=== PATIENT | female | born 1970 | race Caucasian/White ===

== ENCOUNTER 2024-04-27 22:41 | Emergency (ER) | payer MEDICARE, SELFPAY ==
[2024-04-27 22:42] VITALS: BP 111/75; PULSE 82; RESP 18; TEMP 36.5; O2SAT 100; BMI 27.4
--- NOTE | 2024-04-27 22:48 | ED_ITS ---
HPI - Abdominal Pain 2 General: Chief Complaint: Abdominal Pain Stated Complaint: n/v Time Seen by Provider: 04/27/24 22:43 History of Present Illness: 54-year-old female who presents emergenc y room with 3 days of nausea vomiting and diarrhea. Said she had diarrhea and abdominal pain with nausea for the last 3 days but she does started vomiting today. She also developed some lower abdominal pain today. She says she just moved here. No known fevers. She reports she had long COVID . She says that every day she developed some nausea and epigastric abdominal pain until she sneezes. Related Data Previous Rx's Medication Instructions Recorded hydrocodone 5 mg-acetaminophen 325 1 tab PO Q8H PRN pain #14 tabs 04/28/24 mg tablet ondansetron 8 mg disintegrating 8 mg PO Q6H #14 tabs 04/28/24 tablet Allergies Allergy/AdvReac Type Severity Reaction Status Date / Time hydromorphone [From Dilaudid] Allergy ALGY-Anaphy Verified 04/28/24 00:[address] contrast Allergy Unknown Uncoded 04/27/24 22:49 Review of Systems 2 Narrative: Constitutional symptoms: Negative except as documented in HPI. Skin symptoms: Negative except as documented in HPI. Eye symptoms: Negative except as documented in HPI. ENMT symptoms: Negative except as documented in HPI. Respiratory symptoms: Negative except as documented in HPI. Cardiovascular symptoms: Negative except as documented in HPI. Gastrointestinal symptoms: Negative except as documented in HPI. Genitourinary symptoms: Negative except as documented in HPI. Musculoskeletal symptoms: Negative except as documented in HPI. Neurologic symptoms: Negative except as documented in HPI. Psychiatric symptoms: Negative except as documented in HPI. Endocrine symptoms: Negative except as documented in HPI. Physical Exam 2 Narrative: EXAM NARRATIVE: General: Alert, no acute distress. Skin: Warm, dry. Head: Normocephalic, atraumatic. Neck: Supple, trachea midline. Eye: Extraocular movements are intact. Ears, nose, mouth and throat: mucosa moist. Cardiovascular: Regular, Normal peripheral perfusion. Respiratory: Lungs are clear to auscultation, respirations are non-labored, breath sounds are equal, Symmetrical chest wall expansion. Gastrointestinal: Soft, no focal abdominal tenderness, Non distended Musculoskeletal: Normal ROM, no deformity. Neurological: Alert and oriented, No focal neurological deficit observed. Psychiatric: Cooperative, appropriate mood & affect. Course 2 Vital Signs: Vital signs: Vital Signs Temperature 97.7 F 04/27/24 22:42 Pulse Rate 81 04/28/24 00:52 Respiratory Rate 16 04/28/24 00:52 Blood Pressure 133/88 04/28/24 00:52 Pulse Oximetry 92 04/28/24 00:52 Oxygen Delivery Me thod Room Air 04/27/24 22:42 MDM - Abdominal Pain Medical Decision Making Medical decision making: Differential diagnosis for this patient with nausea and vomiting including but not limited to and based on the above HPI, review of systems and physical exam: Urinary tract infection. Appendicitis. Cholecystis. colitis. small bowel obstruction. crohn's flare. pancreatitis. gastritis. peptic ulcer. cyclic vomiting. Viral illness. Influenza. COVID. Orders placed to evaluate differential diagnosis based on the above differential, HPI and physical exam Lab Review: Laboratory results were reviewed and interpreted by myself the emergency room physician. Mild leukocytosis. No anemia. No renal failure. Urinalysis is negative for infection. She does have a mild elevation in her lipase at 446. However she has no signs of pancreatitis. I think this is secondary to vomiting rather than the cause of her vomiting. No epigastric tenderness. No evidence of pancreatitis on CT scan. CT of the abdomen pelvis without contrast: I would have preferred to do this with contrast but patient says she is extremely allergic and she had a family member that . She declines pretreatment. CT shows nothing acute. Some mild sludge in the gallbladder. She is not tender in her right upper quadrant. This was reviewed and interpreted by myself the emergency room physician. I also reviewed the radiology report. I reviewed the patient's medical record. Reexamination: Patient had some redness after receiving Dilaudid. Said she felt tight in her chest. Was medicated and this is improved. No increased work of breathing. Pain is improved on discharge. I discussed findings with her and herself. She has likely gastroenteritis as she has had nausea vomiting nonfocal abdominal pain and diarrhea. Assessment and plan: Gastroenteritis Vomiting ? IV Zofran, IV Dilaudid in the emergency room. Patient symptoms have improved significantly - Discharged home - Discussed plan with patient. Answered any questions. - Evaluation and treatment of this problem were appropriate in the emergency setting. Lab Data 04/27/24 22:23 04/27/24 22:23 Labs/Radiology: Radiology Impressions Abdomen/Pelvis CT 04/27/24 23:38 IMPRESSION: Small amount of gallbladder sludge. No significant acute inflammation appreciated. Laboratory Results WBC 13.22 10^3/uL (3.29-11.43) H 04/27/24 22:23 RBC 5.38 10^6/uL (3.85-5.65) 04/27/24 22:23 Hgb 16.80 g/dL (11.27-16.99) 04/27/24 22:23 Hct 48.4 % (36-47) H 04/27/24 22:23 MCV 90.0 fl (85-98) 04/27/24 22: MCH 31.2 pg (27-33) 04/27/24 22: MCHC 34.7 g/dL (30-55) 04/27/24 22: RDW 12.1 % (12.1-15.1) 04/27/24 22:23 Plt Count 314 10^3/cmm (157-399) 04/27/24 22:23 MPV 9.3 fL (7.4-10.4) 04/27/24 22:23 Neut % (Auto) 76.5 % 04/27/24 22:23 Lymph % (Auto) 13.9 % 04/27/24 22:23 [place] % (Auto) 5.7 % 04/27/24 22:23 Eos % (Auto) 3.2 % 04/27/24 22:23 Baso % (Auto) 0.3 % 04/27/24:23 Neut # (Auto) 10.11 10^3/uL (1.8-7.7) H 04/27/24 22:23 Lymph # (Auto) 1.8 10^3/uL (0.8-4.8) 04/27/24 22:23 [place] # (Auto) 0.8 10^3/uL (0.2-0.9) 04/27/24 22: Eos # (Auto) 0.4 10^3/uL (0.0-0.8) 04/27/24 22:23 Baso # (Auto) 0.0 10^3/uL (0.0-0.1) 04/27/24 22:23 Nucleated RBC % (auto) 0 % 04/27/24 22:23 Nucleated RBCs # 0.0 /100WBC 04/27/24 22:23 Sodium 139 mmol/L (136-145) 04/27/24 22:23 Potassium 4.3 mmol/L (3.5-5.1) 04/27/24 22:23 Chloride 99 mmol/L (98-107) 04/27/24 22:23 Carbon Dioxide 23 mmol/L (22-29) 04/27/24 22:23 Anion Gap 21.3 (5-19) H 04/27/24 22:23 BUN 19 mg/dL (6-20) 04/27/24 22:23 Creatinine 0.9 mg/dL (0.5-0.9) 04/27/24 22:23 GFR Calculation 65.2 mL/min (90-130) L 04/27/24 22:23 Glucose 118 mg/dL (65-115) H 04/27/24 22:23 Calculated Osmolality 291 mOsm/kg (285-295) 04/27/24 22:23 Lactic Acid 2.6 mmol/L (0.5-2.2) H 04/27/24 22:23 Lactic Acid (Sepsis) 2.8 mmol/L (0.5-2.2) H 04/28/24 00:00 Calcium 9.6 mg/dL (8.5-10.5) 04/27/24 22:23 Total Bilirubin 0.6 mg/dL (0.15-1.2) 04/27/24 22:23 AST 28 U/L (0-32) 04/27/24 22:23 ALT 19 U/L (0-33) 04/27/24 22:23 Alkaline Phosphatase 100 U/L (35-105) 04/27/24 22:23 C-Reactive Protein 3.0 mg/L (0.0-4.9) 04/27/24 22:23 Total Protein 7.2 g/dL (6.6-8.7) 04/27/24 22:23 Albumin 4.4 g/dL (3.5-5.2) 04/27/24 22:23 Globulin 2.8 g/dL (1.3-4.6) 04/27/24 22:23 Lipase 446 U/L (13-60) H 04/27/24 22:23 Urine Color Yellow (Yellow) 04/27/24 22:49 Urine Appearance Clear (CLEAR) 04/27/24 22:49 Urine pH >=9.0 (5-7) A 04/27/24 22:49 Ur Specific [place] 1.020 (1.005-1.030) 04/27/24 22:49 Urine Protein Trace (Negative) A 04/27/24:49 Urine Glucose (UA) Negative (Normal) 04/27/24 22: Urine Ketones 1+ (Negative) H 04/27/24 22:49 Urine Blood Negative (Negative) 04/27/24 22: Urine Nitrate Negative (Negative) 04/27/24: Urine Bilirubin Negative (Negative) 04/27/24: Urine Urobilinogen 1.0 mg/dL (Negative) 04/27/24 22:49 Ur Leukocyte Esterase Negative (Negative) 04/27/24 22:49 Urine RBC 0-2 /hpf (0-2) 04/27/24 22:49 Urine WBC 0-5 /hpf (0-5) 04/27/24 22:49 Ur Squamous Epith Cells 6-10 /hpf (0-5) 04/27/24 22:49 Amorphous Sediment Not Reportable 04/27/24 22:49 Urine Bacteria None seen /hpf (NONE) 04/27/24 22:49 Hyaline Casts 0.81 /lpf 04/27/24 22:49 Adenovirus (PCR) Not detected (NOT DETECT) 04/27/24 22:53 C. pneumoniae DNA (PCR) Not detected (NOT DETECT) 04/27/24 22:53 Coronavirus 229E (PCR) Not detected (NOT DETECT) 04/27/24 22:53 Human Metapneumovir PCR Not detected (NOT DETECT) 04/27/24 22:53 Influenza A (H1) PCR Not detected (NOT DETECT) 04/27/24 22:53 Influ A (H1/09) PCR Not detected (NOT DETECT) 04/27/24 22:53 Influenza A (H3) PCR Not detected (NOT DETECT) 04/27/24 22:53 Influenza Type A (PCR) Not detected (NOT DETECT) 04/27/24 22:53 Influenza Type B (PCR) Not detected (NOT DETECT) 04/27/24 22:53 M. pneumoniae (PCR) Not detected (NOT DETECT) 04/27/24 22:53 Parainfluenza 1 (PCR) Not detected (NOT DETECT) 04/27/24 22:53 Parainfluenza 2 (PCR) Not detected (NOT DETECT) 04/27/24 22:53 Parainfluenza 3 (PCR) Not detected (NOT DETECT) 04/27/24 22:53 Parainfluenza 4 (PCR) Not detected (NOT DETECT) 04/27/24 22:53 RSV Type A (PCR) Not detected (NOT DETECT) 04/27/24 22:53 RSV Type B (PCR) Not detected (NOT DETECT) 04/27/24 22:53 Entero/Rhino (PCR) Not detected (NOT DETECT) 04/27/24 22:53 SARS-CoV-2 (PCR) Not detected (NOT DETECT) 04/27/24 22:53 All radiology interpretation(s) finalized by discharge Discharge Plan Discharge Patient Disposition: Home Clinical Impression: Gastroenteritis Condition: Stable Prescriptions: New hydrocodone-acetaminophen 5-325 mg tablet 1 tab PO Q8H PRN (Reason: pain) Qty: 14 0RF Rx Instructions: Take 1/2 to 1 tab every 8 hours as needed for pain ondansetron 8 mg tablet,disintegrating 8 mg PO Q6H Qty: 14 0RF Rx Instructions: Take 1/2-1 tab every 6 hours as needed for nausea and vomiting Discharge Orders: Discharge ED (Routine); Ordered 04/28/24 Ordered By: Regina Gu Discharge Diet: Advance as tolerated Discharge Activity: Increase activity as tolerated Patient Instructions: Gastroenteritis (ED), Opioid Safety, Pain Management Activity Restrictions/Additional Instructions: Thank you for choosing [facility] for your healthcare needs today. Please realize this is an emergency room and that we are providing you with a medical screening exam and this may not be complete and all inclusive of all the testing and or work up that you may need to determine your ailment or severity of your illness. You have been screened and evaluated and felt safe for discharge. Health conditions do change or evolve sometimes and as such it is important that you follow up with your Primary Doctor to be re checked, 3-5 days is a general good time frame for follow up. You are always welcome to return to the ED for re assessment if your symptoms are worsening or you have new concerns Coding Level of Care Code ED Management Associate for Andi Marie
[2024-04-27 22:55] LABS: Basophils % 0.3 %; Eosinophils # 0.4 10^3/uL (0.0-0.8); Eosinophils % 3.2 %; Hematocrit 48.4 % (36-47); Lymphocytes # 1.8 10^3/uL (0.8-4.8); Lymphocytes % 13.9 %; Mean Corpuscular HGB Conc 34.7 g/dL (30-55); Mean Corpuscular Hemoglobin 31.2 pg (27-33); Mean Platelet Volume 9.3 fL (7.4-10.4); Monocytes # 0.8 10^3/uL (0.2-0.9); Monocytes % 5.7 %; Neutrophils # 10.11 10^3/uL (1.8-7.7); Neutrophils % 76.5 %; Nucleated Red Blood Cells % 0 %; Platelet Count 314 10^3/cmm (157-399); Red Blood Count 5.38 10^6/uL (3.85-5.65); Red Cell Distribution Width 12.1 % (12.1-15.1); White Blood Count 13.22 10^3/uL (3.29-11.43)
[2024-04-27 22:58] VITALS: BP 111/75; PULSE 82; RESP 16; O2SAT 99
[2024-04-27 22:58] LABS: Bilirubin Urine Negative (Negative); Blood Urine Negative (Negative); Glucose Urine UA Negative (Normal); Ketones Urine 1+ (Negative); Leukocyte Esterase Urine Negative (Negative); Nitrate Urine Negative (Negative); Protein Urine Trace (Negative); Urine Appearance Clear (CLEAR); Urine Color Yellow (Yellow); pH Urine >=9.0 (5-7)
[2024-04-27 23:03] LABS: Bacteria Urine None Seen /hpf; Hyaline Casts Urine 0.81 /lpf; RBC Urine 0-2 /hpf (0-2); WBC Urine 0-5 /hpf (0-5)
[2024-04-27 23:10] LABS: Alanine Aminotransferase 19 U/L (0-33); Albumin Level 4.4 g/dL (3.5-5.2); Alkaline Phosphatase 100 U/L (35-105); Anion Gap 21.3 (5-19); Aspartate Amino Transferase 28 U/L (0-32); Blood Urea Nitrogen 19 mg/dL (6-20); Calcium 9.6 mg/dL (8.5-10.5); Carbon Dioxide 23 mmol/L (22-29); Chloride 99 mmol/L (98-107); Creatinine Clr Calc Pharmacy 74.9325; Globulin 2.8 g/dL (1.3-4.6); Glomerular Filtration Rate 65.2 mL/min (90-130); Glucose 118 mg/dL (65-115); Osmolality Calculated 291 mOsm/kg (285-295); Potassium 4.3 mmol/L (3.5-5.1); Sodium 139 mmol/L (136-145); Total Bilirubin 0.6 mg/dL (0.15-1.2); Total Protein 7.2 g/dL (6.6-8.7)
[2024-04-27 23:11] LABS: Lactic Sepsis W/Reflex 2.6 mmol/L (0.5-2.2)
[2024-04-27 23:25] LABS: Lipase 446 U/L (13-60)
--- NOTE | 2024-04-27 23:38 | CTR_ITS ---
PROCEDURE INFORMATION: Exam: CT Abdomen And Pelvis Without Contrast Exam date and time: 04/27/2024 11:46 PM Age: 54 years old Clinical indication: Abdominal pain; Periumbilical; Prior surgery; Surgery date: 6+ months; Surgery type: Tubal TECHNIQUE: Imaging protocol: Computed tomography of the abdomen and pelvis without contrast. Radiation optimization: All CT scans at this facility use at least one of these dose optimization techniques: automated exposure control; mA and/or kV adjustment per patient size (includes targeted exams where dose is matched to clinical indication); or iterative reconstruction. COMPARISON: No relevant prior studies available. RADIATION DOSE METRICS: Total DLP (mGy-cm): 702.73 FINDINGS: Liver: Normal. No mass. Gallbladder and biliary ducts: Minimal dependent gallbladder sludge. Pancreas: Normal. No ductal dilation. Spleen: Normal. No splenomegaly. Adrenal glands: Normal. No mass. Kidneys and ureters: Normal. No hydronephrosis. 18 mm probable left renal cyst for which no additional follow-up is necessary at this time. Stomach and bowel: Unremarkable. No obstruction. No mucosal thickening. Appendix: No evidence of appendicitis. Intraperitoneal space: Unremarkable. No free air. No significant fluid collection. Vasculature: Calcification at the celiac origin, less than 50% stenosis grossly estimated. Lymph nodes: Unremarkable. No enlarged lymph nodes. Urinary bladder: Unremarkable as visualized. Reproductive: Unremarkable as visualized. Bones/joints: Unremarkable. No acute fracture. Soft tissues: Unremarkable. CT/CT abdomen pelvis wo con [id number] IMPRESSION: Small amount of gallbladder sludge. No significant acute inflammation appreciated.
[2024-04-28] MEDS: ondansetron 2 mg/ML SDV 2 mL 8 MG IVP
[2024-04-28] MEDS: HYDROmorphone 1 mg/mL INJ 1 mL IVP
[2024-04-28] MEDS: methylPREDNISolone sod succ 125 mg/2 mL INJ 60 MG IVP (00:16)
[2024-04-28] MEDS: diphenhydrAMINE 50 mg/mL SDV 1mL IVP (00:16)
[2024-04-28] MEDS: famotidine 20 mg/2 mL INJ 40 MG IVP (00:16)
--- NOTE | 2024-04-28 00:17 | PC.NURSE ---
MD informed of pt reaction to dilaudid. pt became very red, anxious, reported trouble breathing. RN at bedside until pt reaction subsided after giving medications listed in MAR. pt educated on allergy to dilaudid and that it would be added to allergy list.
[2024-04-28 00:41] LABS: Reflex Lactate Order REFLEX LACTIC ORDERD
[2024-04-28 00:48] LABS: Adenovirus Not Detected (NOT DETECT); Chlamydia Pneumoniae Not Detected (NOT DETECT); Coronavirus 229E,HKU1,NL63,OC4 Not Detected (NOT DETECT); Human Metapneumovirus Not Detected (NOT DETECT); Human Rhinovirus/Enterovirus Not Detected (NOT DETECT); Influenza A Not Detected (NOT DETECT); Influenza A H1 Not Detected (NOT DETECT); Influenza A H1-2009 Not Detected (NOT DETECT); Influenza A H3 Not Detected (NOT DETECT); Influenza B Not Detected (NOT DETECT); Mycoplasma Pneumoniae Not Detected (NOT DETECT); Parainfluenza Virus Type 1 Not Detected (NOT DETECT); Parainfluenza Virus Type 2 Not Detected (NOT DETECT); Parainfluenza Virus Type 3 Not Detected (NOT DETECT); Parainfluenza Virus Type 4 Not Detected (NOT DETECT); Respiratory Syncytial Virus A Not Detected (NOT DETECT); Respiratory Syncytial Virus B Not Detected (NOT DETECT); SARS-COV-2 Not Detected (NOT DETECT)
[2024-04-28 00:52] VITALS: BP 133/88; PULSE 81; RESP 16; O2SAT 92
[2024-04-28 00:57] LABS: Lactic Acid level (Lactate) 2.8 mmol/L (0.5-2.2)
== END 2024-04-28 00:54 | disposition home or self-care (01) ==
PROVIDERS: Emergency Provider Emergency Medicine
DX: K52.9 Noninfective gastroenteritis and colitis, unspecified (principal); Z11.52 Encounter for screening for COVID-19
CPT/HCPCS: 36415; 74176; 80053; 81001; 83605; 83690; 85025; 86140; 87040; 87486; 87581; 87633; 96374; 96375; 99285; J1171; J1200; J2405; J2919; J3490

== ENCOUNTER → 2024-06-16 09:03 | Outpatient (BNVA) | payer MEDICARE, MEDICAID, SELFPAY | PROVIDERS: Referring Provider Nurse Practitioner Family; Visit Provider Nurse Practitioner | DX: M16.0 Bilateral primary osteoarthritis of hip (principal); M54.16 Radiculopathy, lumbar region | CPT/HCPCS: 73522; 99204 ==

== ENCOUNTER → 2024-07-02 11:36 | Outpatient (BNVA) | payer MEDICARE, MEDICAID, SELFPAY | PROVIDERS: PCP Family Medicine; Visit Provider Specialist | DX: M16.0 Bilateral primary osteoarthritis of hip (principal); M54.16 Radiculopathy, lumbar region | CPT/HCPCS: 20610; 77002; J1100; J2795; J3301; J9999 ==

== ENCOUNTER → 2024-08-09 11:14 | Outpatient (BNVA) | payer MEDICARE, MEDICAID, SELFPAY | PROVIDERS: PCP Family Medicine; Visit Provider Family Medicine | DX: E55.9 Vitamin D deficiency, unspecified (principal); Z86.39 Personal history of other endocrine, nutritional and metabolic disease; Z13.6 Encounter for screening for cardiovascular disorders; R53.83 Other fatigue | CPT/HCPCS: 80053; 80061; 82306; 84443; 85025; 86618; 86666; 86757 ==

== ENCOUNTER 2024-08-26 11:21 | Outpatient (CLI) | payer MEDICARE, SELFPAY ==
[2024-08-26 12:45] LABS: Chol HDL Ratio 5.04 mg/dL (0.0-4.40); Cholesterol 232 mg/dL (0-200); HDL Cholesterol 46 mg/dL (60-100); LDL Cholesterol Calculated 152 mg/dL (50-129); Triglycerides 172 mg/dL (0-150)
[2024-08-26 12:55] LABS: Hepatitis C Virus Antibody Non-Reactive (Nonreactive)
[2024-08-26 13:29] LABS: HIV 1 & 2 Antibody Non-Reactive (Non-Reactiv); HIV 1 & 2 Antigen Non-Reactive (Non-Reactiv)
[2024-08-27 07:20] LABS: Lymes IGG WB <0.90 index
== END 2024-08-26 11:22 | disposition home or self-care (01) ==
PROVIDERS: PCP Family Medicine; Visit Provider Nurse Practitioner Family
DX: L40.0 Psoriasis vulgaris (principal); S20.161A Insect bite (nonvenomous) of breast, right breast, initial encounter; X58.XXXA Exposure to other specified factors, initial encounter
CPT/HCPCS: 36415; 80061; 86160; 86480; 86617; 86668; 86803; 87806

== ENCOUNTER → 2024-09-16 11:04 | Outpatient (BNVA) | payer MEDICARE, SELFPAY | PROVIDERS: PCP Family Medicine; Visit Provider Nurse Practitioner Family | DX: L40.0 Psoriasis vulgaris (principal); S20.161A Insect bite (nonvenomous) of breast, right breast, initial encounter; X58.XXXA Exposure to other specified factors, initial encounter; Z08 Encounter for follow-up examination after completed treatment for malignant neoplasm; Z85.828 Personal history of other malignant neoplasm of skin | CPT/HCPCS: 99213 ==

== ENCOUNTER → 2025-01-10 10:54 | Outpatient (BNVA) | payer MEDICARE, SELFPAY | PROVIDERS: PCP Family Medicine; Visit Provider Nurse Practitioner Family | DX: L40.0 Psoriasis vulgaris (principal); Z79.899 Other long term (current) drug therapy; L57.8 Other skin changes due to chronic exposure to nonionizing radiation | CPT/HCPCS: 99214 ==